=== PATIENT | female | born 1990 | race Two or more races ===

== ENCOUNTER → 2021-06-01 | Outpatient (CLI) | payer BC ==
[2021-06-01 13:59] LABS: Basophils # (auto) 0 10 ^3/uL (0-0.2); Basophils % (auto) 0.5 % (0.0-2.0); Eosinophils # (auto) 0.1 10 ^3/uL (0-0.8); Hematocrit 39.2 % (36.0-46.0); Hemoglobin 13.2 g/dL (12.2-16.2); Lymphocytes # (auto) 2.7 10 ^3/uL (0.4-5.4); Lymphocytes % (auto) 32.1 % (10.0-50.0); Mean Corpuscular Hemoglobin 30.2 pg (28.0-32.0); Mean Corpuscular Hgb Conc. 33.7 g/dL (32.0-36.0); Mean Corpuscular Volume 89.7 fL (80.0-100.0); Monocytes # (auto) 0.6 10 ^3/uL (0-1.3); Monocytes % (auto) 7.2 % (0.0-12.0); Neutrophils # (auto) 4.9 10 ^3/uL (1.6-8.6); Neutrophils % (auto) 59.2 % (37.0-80.0); Nucleated Red Blood Cells % 0.1 %; Red Blood Cells 4.37 10^6/uL (4.0-5.20); Red Cell Distribution Width 13.7 % (11.8-14.3); White Blood Cell 8.3 10^3/uL (4.4-10.8)
[2021-06-01 14:12] LABS: Urine Bacteria NONE SEEN /hpf (None Seen); Urine Blood Negative /uL (Negative); Urine Specific Gravity 1.021 (1.001-1.035); Urine WBC 1 /hpf (0 - 5)
[2021-06-01 14:34] LABS: Albumin 3.6 g/dL (3.4-5.0); Calcium 8.8 mg/dL (8.5-10.1)
[2021-06-01 14:39] LABS: Bilirubin, Total 0.7 mg/dL (0.2-1.0); Total Protein 6.8 g/dL (6.4-8.2)
== END | disposition home or self-care (01) ==
LOC: LAB 13:36
PROVIDERS: ATTEND Nurse Practitioner Family
DX: Z32.01 Encounter for pregnancy test, result positive (principal); Z87.59 Personal history of other complications of pregnancy, childbirth and the puerperium; Z83.3 Family history of diabetes mellitus; Z00.00 Encounter for general adult medical examination without abnormal findings
CPT/HCPCS: 36415; 80053; 81001; 84702; 85025

== ENCOUNTER → 2021-06-22 | Outpatient (CLI) | payer BC ==
[2021-06-22 09:34] LABS: Basophils # (auto) 0 10 ^3/uL (0-0.2); Basophils % (auto) 0.5 % (0.0-2.0); Eosinophils # (auto) 0 10 ^3/uL (0-0.8); Eosinophils % (auto) 0.6 % (0.0-7.0); Hematocrit 39.3 % (36.0-46.0); Hemoglobin 13.4 g/dL (12.2-16.2); Lymphocytes # (auto) 2.7 10 ^3/uL (0.4-5.4); Lymphocytes % (auto) 32.3 % (10.0-50.0); Mean Corpuscular Hemoglobin 30.9 pg (28.0-32.0); Mean Corpuscular Volume 90.8 fL (80.0-100.0); Monocytes # (auto) 0.5 10 ^3/uL (0-1.3); Monocytes % (auto) 6.2 % (0.0-12.0); Neutrophils % (auto) 60.4 % (37.0-80.0); Nucleated Red Blood Cells % 0.1 %; Red Blood Cells 4.33 10^6/uL (4.0-5.20); Red Cell Distribution Width 13.5 % (11.8-14.3); White Blood Cell 8.3 10^3/uL (4.4-10.8)
[2021-06-22 10:02] LABS: Amphetamine Screen, Urine NEGATIVE (NEGATIVE); Barbiturate Scree,Urine NEGATIVE (NEGATIVE); Benzodiazephine Screen, Urine NEGATIVE (NEGATIVE); Cannabinoid Screen, Urine NEGATIVE (NEGATIVE); Cocaine Screen, Urine NEGATIVE (NEGATIVE); Opiate Scree,Urine NEGATIVE (NEGATIVE); Phencyclidine Screen, Urine NEGATIVE (NEGATIVE)
[2021-06-23 07:06] LABS: RPR Non Reactive (Non Reactive)
== END | disposition home or self-care (01) ==
LOC: LAB 08:52
PROVIDERS: ATTEND Obstetrics & Gynecology Obstetrics
DX: Z34.00 Encounter for supervision of normal first pregnancy, unspecified trimester (principal); Z31.430 Encounter of female for testing for genetic disease carrier status for procreative management; Z36.0 Encounter for antenatal screening for chromosomal anomalies; N39.0 Urinary tract infection, site not specified
CPT/HCPCS: 36415; 80307; 83036; 84112; 84702; 85025; 86592; 86703; 86762; 86850; 86900; 86901; 87086; 87340

== ENCOUNTER → 2021-08-02 | Outpatient (CLI) | payer BC | END | disposition home or self-care (01) | LOC: LAB 09:10 | PROVIDERS: ATTEND Obstetrics & Gynecology | DX: Z34.80 Encounter for supervision of other normal pregnancy, unspecified trimester (principal); Z3A.00 Weeks of gestation of pregnancy not specified ==

== ENCOUNTER → 2021-11-09 | Outpatient (CLI) | payer BC ==
[2021-11-09 10:56] LABS: Basophils # (auto) 0 10 ^3/uL (0-0.2); Basophils % (auto) 0.2 % (0.0-2.0); Eosinophils # (auto) 0.1 10 ^3/uL (0-0.8); Eosinophils % (auto) 0.7 % (0.0-7.0); Hemoglobin 12.7 g/dL (12.2-16.2); Lymphocytes # (auto) 1.9 10 ^3/uL (0.4-5.4); Lymphocytes % (auto) 19.7 % (10.0-50.0); Mean Corpuscular Hemoglobin 31.2 pg (28.0-32.0); Mean Corpuscular Hgb Conc. 34.2 g/dL (32.0-36.0); Mean Corpuscular Volume 91.4 fL (80.0-100.0); Monocytes # (auto) 0.5 10 ^3/uL (0-1.3); Monocytes % (auto) 5.6 % (0.0-12.0); Neutrophils # (auto) 7.2 10 ^3/uL (1.6-8.6); Neutrophils % (auto) 73.8 % (37.0-80.0); Red Blood Cells 4.05 10^6/uL (4.0-5.20); Red Cell Distribution Width 13.5 % (11.8-14.3); White Blood Cell 9.8 10^3/uL (4.4-10.8)
[2021-11-10 07:06] LABS: RPR Non Reactive (Non Reactive)
== END | disposition home or self-care (01) ==
LOC: LAB 08:47
PROVIDERS: ATTEND Obstetrics & Gynecology
DX: Z34.00 Encounter for supervision of normal first pregnancy, unspecified trimester (principal); O99.810 Abnormal glucose complicating pregnancy
CPT/HCPCS: 36415; 82951; 85025; 86592

== ENCOUNTER → 2022-01-10 | Outpatient (CLI) | payer BC ==
[2022-01-10 08:49] LABS: Basophils # (auto) 0.1 10 ^3/uL (0-0.2); Basophils % (auto) 0.9 % (0.0-2.0); Eosinophils # (auto) 0 10 ^3/uL (0-0.8); Eosinophils % (auto) 0.4 % (0.0-7.0); Hematocrit 39.8 % (36.0-46.0); Hemoglobin 13.4 g/dL (12.2-16.2); Lymphocytes # (auto) 2.3 10 ^3/uL (0.4-5.4); Lymphocytes % (auto) 22.2 % (10.0-50.0); Mean Corpuscular Hgb Conc. 33.6 g/dL (32.0-36.0); Mean Corpuscular Volume 89.4 fL (80.0-100.0); Monocytes # (auto) 0.6 10 ^3/uL (0-1.3); Neutrophils # (auto) 7.4 10 ^3/uL (1.6-8.6); Neutrophils % (auto) 70.5 % (37.0-80.0); Nucleated Red Blood Cells % 0.1 %; Red Blood Cells 4.45 10^6/uL (4.0-5.20); Red Cell Distribution Width 14.6 % (11.8-14.3); White Blood Cell 10.5 10^3/uL (4.4-10.8)
[2022-01-11 06:07] LABS: RPR Non Reactive (Non Reactive)
== END | disposition home or self-care (01) ==
LOC: LAB 08:31
PROVIDERS: ATTEND Obstetrics & Gynecology
DX: Z34.80 Encounter for supervision of other normal pregnancy, unspecified trimester (principal)
CPT/HCPCS: 36415; 84112; 85025; 86592

== ENCOUNTER 2022-02-04 06:23 | Observation (INO) | payer BC ==
[~2022-02-04] VITALS: Ht 162.6 cm; Wt 97.5 kg
== END 2022-02-04 07:51 | disposition home or self-care (01) ==
LOC: LDRP 06:23
PROVIDERS: ADMIT Obstetrics & Gynecology; ATTEND Obstetrics & Gynecology
DX: O62.9 Abnormality of forces of labor, unspecified (principal); O46.93 Antepartum hemorrhage, unspecified, third trimester; Z3A.39 39 weeks gestation of pregnancy
CPT/HCPCS: 59025; 81002; G0378

== ENCOUNTER 2022-02-05 17:01 | Inpatient (IN) | payer BC ==
[~2022-02-05] VITALS: Ht 162.6 cm; Wt 108.9 kg
[2022-02-05] MEDS ORDERED: LIDOCAINE 2%HCL (LOCAL ANESTH.) INJ 10ml MDV IJ PRN (21:15)
[2022-02-05] MEDS ORDERED: PHISODERM TOP SOLN 240ML BTL TOP PRN (21:15)
[2022-02-05] MEDS ORDERED: BUTORPHANOL TARTRATE 2 MG/1 ML VIAL IV PRN (21:15)
[2022-02-05] MEDS ORDERED: WITCH HAZEL-GLYCERIN PAD TOP PRN (21:15)
[2022-02-05] MEDS ORDERED: LACT. RINGERS/OXYTOCIN 20UNITS 1,000 ML IV SCH (21:15)
[2022-02-05] MEDS ORDERED: TERBUTALINE SULFATE 1 MG/ML 1ML VIAL SC PRN (21:15)
[2022-02-05] MEDS ORDERED: DERMOPLAST 60ML BOTTLE TOP PRN (21:15)
[2022-02-05] MEDS: LACTATED RINGER'S 1,000 ML IV SCH (21:45)
[2022-02-05] MEDS: PROMETHAZINE HCL 25 MG/ML 1ML IM PRN (21:53)
[2022-02-05] MEDS: BUTORPHANOL TARTRATE 2 MG/1 ML VIAL IV PRN (21:56)
[2022-02-05 22:18] LABS: Basophils # (auto) 0 10 ^3/uL (0-0.2); Basophils % (auto) 0.3 % (0.0-2.0); Eosinophils # (auto) 0 10 ^3/uL (0-0.8); Hematocrit 42.3 % (36.0-46.0); Lymphocytes # (auto) 2.2 10 ^3/uL (0.4-5.4); Lymphocytes % (auto) 17.9 % (10.0-50.0); Mean Corpuscular Hemoglobin 29.8 pg (28.0-32.0); Mean Corpuscular Volume 90.3 fL (80.0-100.0); Monocytes # (auto) 0.5 10 ^3/uL (0-1.3); Monocytes % (auto) 3.9 % (0.0-12.0); Neutrophils # (auto) 9.5 10 ^3/uL (1.6-8.6); Neutrophils % (auto) 77.9 % (37.0-80.0); Red Blood Cells 4.68 10^6/uL (4.0-5.20); Red Cell Distribution Width 15.7 % (11.8-14.3); White Blood Cell 12.2 10^3/uL (4.4-10.8)
[2022-02-05 22:20] LABS: Urine Bacteria NONE SEEN /hpf (None Seen); Urine Blood 2+ /uL (Negative); Urine Specific Gravity 1.008 (1.001-1.035); Urine WBC 2 /hpf (0 - 5)
[2022-02-05 22:34] LABS: Albumin 2.7 g/dL (3.4-5.0); Calcium 8.8 mg/dL (8.5-10.1); Potassium 3.6 mmol/L (3.5-5.1)
[2022-02-05 22:41] LABS: INR 0.92 (0.9-1.15); Partial Thromboplastin Time 27.4 sec (24.6-33.4)
[2022-02-05 22:45] LABS: BUN/Creatinine Ratio 14.5; Bilirubin, Total 0.7 mg/dL (0.2-1.0); Total Protein 6.7 g/dL (6.4-8.2)
[2022-02-05 23:04] LABS: Alcohol, Urine < 3.0 mg/dL (0-10); Amphetamine Screen, Urine NEGATIVE (NEGATIVE); Barbiturate Scree,Urine NEGATIVE (NEGATIVE); Benzodiazephine Screen, Urine NEGATIVE (NEGATIVE); Cannabinoid Screen, Urine NEGATIVE (NEGATIVE); Cocaine Screen, Urine NEGATIVE (NEGATIVE); Opiate Scree,Urine NEGATIVE (NEGATIVE); Phencyclidine Screen, Urine NEGATIVE (NEGATIVE)
[2022-02-06] VITALS (8 sets, daily range): BP systolic 100–128; BP diastolic 45–103
[2022-02-06] MEDS: PROMETHAZINE HCL 25 MG/ML 1ML IM PRN (01:26)
[2022-02-06] MEDS: BUTORPHANOL TARTRATE 2 MG/1 ML VIAL IV PRN (01:27)
[2022-02-06] MEDS ORDERED: LACTATED RINGER'S 1,000 ML IV ONE (02:45)
[2022-02-06] MEDS ORDERED: ePHEDrine SULFATE 50 MG/ML AMP IV ONE (02:45)
[2022-02-06] MEDS ORDERED: NALOXONE HCL 0.4 MG/ML VIAL IV ONE (02:45)
[2022-02-06] MEDS ORDERED: fentaNYL CITRATE 100 MCG/2 ML VL IV ONE (02:45)
[2022-02-06] MEDS ORDERED: ROPIVACAINE HCL 200 ML EPI SCH (02:45)
[2022-02-06] MEDS ORDERED: LIDOCAINE HCL 2 %PF INJ 10ML AMP IJ ONE ×2 (02:45→18:16)
[2022-02-06] MEDS: LACTATED RINGER'S 1,000 ML IV SCH (13:11)
[2022-02-06] MEDS ORDERED: ACETAMINOPHEN 325 MG TAB PO PRN (13:15)
[2022-02-06] MEDS ORDERED: ceFAZolin 2 GM in D5W 5% 100 ML IV ONE (13:15)
[2022-02-06] MEDS ORDERED: IBUP800T27 PO (18:03)
[2022-02-06] MEDS ORDERED: HYDR-4902 PO (18:03)
[2022-02-06] MEDS ORDERED: DOCU-94 PO (18:03)
[2022-02-06] MEDS ORDERED: LIDOCAINE 2% (LOCAL ANESTH.) PF 5ml SDV ONE ×2 (18:14→18:15)
[2022-02-06] MEDS ORDERED: fentaNYL CITRATE 100 MCG/2 ML VL ONE (18:15)
[2022-02-06] MEDS ORDERED: ONDANSETRON HCL 4 MG/2 ML VIAL ONE (18:15)
[2022-02-06] MEDS ORDERED: MORPHINE SULF PF 5 MG/10 ML VIAL ONE (18:15)
[2022-02-06] MEDS ORDERED: GLYCOPYRROLATE 0.2 MG/ML 1ML VIAL ONE (18:15)
[2022-02-06] MEDS ORDERED: LACT. RINGERS/OXYTOCIN 20UNITS 1,000 ML IV ONE (18:30)
[2022-02-06] MEDS ORDERED: ONDANSETRON HCL 4 MG/2 ML VIAL IV PRN ×3 (18:30→19:30)
[2022-02-06] MEDS ORDERED: CARBOPROST TROMETHAMINE 250 MCG/1ML VIAL IM ONE (18:46)
[2022-02-06] MEDS ORDERED: METHYLERGONOVINE MALEATE 0.2 MG/ML AMP IM ONE (18:50)
[2022-02-06] MEDS ORDERED: NEOMYCIN-BACITRACIN-POLYM 15GM TOP OINT TOP ONE (19:09)
[2022-02-06] MEDS ORDERED: KETOROLAC TROMETH 30 MG/ML 1ML VIAL IV PRN (19:30)
[2022-02-06] MEDS ORDERED: FAMOTIDINE (10MG/ML) 2ML VL IV PRN (19:30)
[2022-02-06] MEDS ORDERED: DexAMETHasone SOD PHOS 10MG/1ML VIAL INJ IV PRN (19:30)
[2022-02-06] MEDS ORDERED: NALOXONE HCL 0.4 MG/ML VIAL IV PRN (19:30)
[2022-02-06] MEDS ORDERED: PHYTONADIONE 1MG/0.5ML SYRINGE NEONATAL IM ONE (20:15)
[2022-02-06] MEDS ORDERED: HEPATITIS B VACCINE PED (PF) 10 MCG/0.5 ML IM ONE (20:15)
[2022-02-06] MEDS ORDERED: ERYTHROMY OPTH OINT 5mg/gm 1gm or 3.5gm tube OP ONE (20:15)
[2022-02-06] MEDS: DIPHENOXYLATE W/ATROPINE 2.5 MG TAB PO SCH (21:09)
[2022-02-06] MEDS: diphenhdrAMINE HCL 50 MG/1 ML VL IV PRN (21:16)
[2022-02-07] VITALS (24 sets, daily range): BP systolic 88–122; BP diastolic 45–80
[2022-02-07 00:53] LABS: Basophils # (auto) 0 10 ^3/uL (0-0.2); Basophils % (auto) 0.2 % (0.0-2.0); Eosinophils # (auto) 0 10 ^3/uL (0-0.8); Hematocrit 34.5 % (36.0-46.0); Hemoglobin 11.4 g/dL (12.2-16.2); Lymphocytes # (auto) 1.6 10 ^3/uL (0.4-5.4); Lymphocytes % (auto) 9.1 % (10.0-50.0); Mean Corpuscular Hemoglobin 30.1 pg (28.0-32.0); Mean Corpuscular Hgb Conc. 33.2 g/dL (32.0-36.0); Mean Corpuscular Volume 90.9 fL (80.0-100.0); Monocytes # (auto) 1.1 10 ^3/uL (0-1.3); Neutrophils % (auto) 84.7 % (37.0-80.0); Red Blood Cells 3.79 10^6/uL (4.0-5.20); Red Cell Distribution Width 16.1 % (11.8-14.3); White Blood Cell 17.7 10^3/uL (4.4-10.8)
[2022-02-07] MEDS: diphenhdrAMINE HCL 50 MG/1 ML VL IV PRN ×2 (02:41→08:57)
[2022-02-07] MEDS: ACETAMINOPHEN IV 1000 MG/100ML (10MG/ML) IV PRN ×2 (03:09→08:46)
[2022-02-07] MEDS: ceFAZolin 1GM/50ML 50 ML IV SCH ×5 (03:33→22:19)
[2022-02-07 05:06] LABS: RPR Non Reactive (Non Reactive)
[2022-02-07 07:46] LABS: Basophils # (auto) 0.1 10 ^3/uL (0-0.2); Basophils % (auto) 0.5 % (0.0-2.0); Eosinophils # (auto) 0 10 ^3/uL (0-0.8); Eosinophils % (auto) 0.1 % (0.0-7.0); Hematocrit 33.3 % (36.0-46.0); Hemoglobin 11.2 g/dL (12.2-16.2); Lymphocytes # (auto) 2.6 10 ^3/uL (0.4-5.4); Lymphocytes % (auto) 15.6 % (10.0-50.0); Mean Corpuscular Hemoglobin 30.8 pg (28.0-32.0); Mean Corpuscular Hgb Conc. 33.7 g/dL (32.0-36.0); Mean Corpuscular Volume 91.5 fL (80.0-100.0); Monocytes % (auto) 6.3 % (0.0-12.0); Neutrophils # (auto) 12.9 10 ^3/uL (1.6-8.6); Neutrophils % (auto) 77.5 % (37.0-80.0); Red Blood Cells 3.64 10^6/uL (4.0-5.20); White Blood Cell 16.6 10^3/uL (4.4-10.8)
[2022-02-07] MEDS: DIPHENOXYLATE W/ATROPINE 2.5 MG TAB PO SCH (10:00)
[2022-02-07] MEDS ORDERED: HYDROcodone-ACET 5/325MG TAB PO PRN (10:15)
[2022-02-07] MEDS: HYDROcodone-ACET 5/325MG TAB PO PRN ×2 (13:13→17:27)
[2022-02-07] MEDS: SIMETHICONE 80 MG CHEWABLE TABLET PO SCH ×3 (13:14→22:00)
[2022-02-07] MEDS: IBUPROFEN 800 MG TAB PO PRN (22:19)
[2022-02-07] MEDS: DOCUSATE SOD 100 MG CAP PO SCH (22:19)
[2022-02-08 03:00] VITALS: BP 97/68
[2022-02-08] MEDS: HYDROcodone-ACET 5/325MG TAB PO PRN ×4 (03:05→21:28)
[2022-02-08] MEDS: IBUPROFEN 800 MG TAB PO PRN ×2 (05:53→17:09)
[2022-02-08] MEDS: SIMETHICONE 80 MG CHEWABLE TABLET PO SCH ×4 (06:00→21:30)
[2022-02-08 07:00] VITALS: BP 104/60
[2022-02-08] MEDS ORDERED: DOCUSATE CALCIUM 240 MG CAP PO SCH (10:00)
[2022-02-08] MEDS: DOCUSATE SOD 100 MG CAP PO SCH ×2 (10:07→21:30)
[2022-02-08 11:00] VITALS: BP 107/58
[2022-02-08] MEDS ORDERED: TETANUS-DIPTH-ACEL PERTUSSIS 0.5ML SYR Tdap IM ONE (13:15)
[2022-02-08 15:00] VITALS: BP 124/77
[2022-02-08 19:15] VITALS: BP 114/57
[2022-02-08 23:00] VITALS: BP 114/57
[2022-02-09] MEDS: IBUPROFEN 800 MG TAB PO PRN ×2 (01:31→07:19)
[2022-02-09 03:00] VITALS: BP 111/59
[2022-02-09] MEDS: HYDROcodone-ACET 5/325MG TAB PO PRN (05:31)
[2022-02-09] MEDS: SIMETHICONE 80 MG CHEWABLE TABLET PO SCH (05:32)
[2022-02-09 07:00] VITALS: BP 100/58
[2022-02-09 08:57] VITALS: BP 100/55
== END 2022-02-09 08:57 | disposition home or self-care (01) | DRG 788 ==
LOC: LDRP 17:01 → UNDOADMOB 17:01 → LDRP 21:05 → OBSVTOIN 21:05 → NUR 02-06 18:23 → LDRP 02-06 20:24
PROVIDERS: ADMIT Obstetrics & Gynecology; ATTEND Obstetrics & Gynecology
PROC: 10D00Z1 Extraction of Products of Conception, Low, Open Approach (ICD-10-PCS; principal; 2022-02-06 18:18)
DX: O63.9 Long labor, unspecified (principal); Z20.822 Contact with and (suspected) exposure to COVID-19; O62.0 Primary inadequate contractions; O77.9 Labor and delivery complicated by fetal stress, unspecified; Z3A.39 39 weeks gestation of pregnancy; Z37.0 Single live birth
CPT/HCPCS: 36415; 59025; 62282; 80053; 80307; 81001; 81002; 85025; 85610; 85730; 86592; 86850; 86900; 86901; 90715; 94760; 94762; 96360; 96361; 96365; 96366; 96372; 96374; 96375; G0378; J0131; J0690; J1885; J2001; J2405; J2590; J7060

== ENCOUNTER → 2022-07-25 | Outpatient (CLI) | payer BC ==
[~2022-07-25] MED LIST: DOCU-94 PO; HYDR-4902 PO; IBUP800T27 PO
[2022-07-25 10:43] LABS: Basophils # (auto) 0 10 ^3/uL (0-0.2); Basophils % (auto) 0.4 % (0.0-2.0); Eosinophils # (auto) 0.1 10 ^3/uL (0-0.8); Eosinophils % (auto) 0.9 % (0.0-7.0); Hematocrit 44.2 % (36.0-46.0); Hemoglobin 14.6 g/dL (12.2-16.2); Lymphocytes # (auto) 2.9 10 ^3/uL (0.4-5.4); Mean Corpuscular Hemoglobin 29.6 pg (28.0-32.0); Mean Corpuscular Volume 89.5 fL (80.0-100.0); Monocytes # (auto) 0.4 10 ^3/uL (0-1.3); Monocytes % (auto) 4.8 % (0.0-12.0); Neutrophils # (auto) 4.6 10 ^3/uL (1.6-8.6); Neutrophils % (auto) 57.9 % (37.0-80.0); Nucleated Red Blood Cells % 0.1 %; Red Blood Cells 4.93 10^6/uL (4.0-5.20); Red Cell Distribution Width 15.2 % (11.8-14.3)
[2022-07-25 19:58] LABS: Albumin 4.3 g/dL (3.4-5.0); Potassium 4.4 mmol/L (3.5-5.1)
[2022-07-25 20:04] LABS: BUN/Creatinine Ratio 22.7; Total Protein 7.6 g/dL (6.4-8.2)
[2022-07-27 13:54] LABS: Hepatitis A Ab IgM Negative
[2022-07-27 14:03] LABS: Hepatitis B Core IgM Negative
== END | disposition home or self-care (01) ==
LOC: LAB 09:54
PROVIDERS: ATTEND Nurse Practitioner Family
DX: Z20.2 Contact with and (suspected) exposure to infections with a predominantly sexual mode of transmission (principal); L65.9 Nonscarring hair loss, unspecified; F53.0 Postpartum depression; E66.01 Morbid (severe) obesity due to excess calories
CPT/HCPCS: 36415; 80053; 80061; 82306; 84439; 84443; 85025; 86592; 86695; 86696; 86703; 86705; 86709; 86803; 87340

== ENCOUNTER → 2023-08-07 | Outpatient (CLI) | payer BC ==
[~2023-08-07] MED LIST changes: +IBUP-1456 PO; -IBUP800T27 PO
[2023-08-07 11:31] LABS: Basophils # (auto) 0 10 ^3/uL (0-0.2); Basophils % (auto) 0.3 % (0.0-2.0); Eosinophils # (auto) 0.1 10 ^3/uL (0-0.8); Eosinophils % (auto) 1.6 % (0.0-7.0); Hemoglobin 13.4 g/dL (12.2-16.2); Lymphocytes # (auto) 2.3 10 ^3/uL (0.4-5.4); Lymphocytes % (auto) 27.7 % (10.0-50.0); Mean Corpuscular Hgb Conc. 33.4 g/dL (32.0-36.0); Mean Corpuscular Volume 92.8 fL (80.0-100.0); Monocytes # (auto) 0.5 10 ^3/uL (0-1.3); Monocytes % (auto) 5.5 % (0.0-12.0); Neutrophils # (auto) 5.4 10 ^3/uL (1.6-8.6); Neutrophils % (auto) 64.9 % (37.0-80.0); Red Blood Cells 4.31 10^6/uL (4.0-5.20); Red Cell Distribution Width 13.3 % (11.8-14.3); White Blood Cell 8.4 10^3/uL (4.4-10.8)
[2023-08-07 11:51] LABS: Alkaline Phosphatase 82 U/L (46-116); Anion Gap 7 (5-15); Calcium 9.2 mg/dL (8.5-10.1); Carbon Dioxide 27 mmol/L (20-30); Chloride 106 mmol/L (98-107); Potassium 3.9 mmol/L (3.5-5.1); Sodium 140 mmol/L (136-145)
[2023-08-07 11:52] LABS: Aspartate Aminotransferase 11 U/L (13-40); Blood Urea Nitrogen 6 mg/dL (9-23); Glucose 88 mg/dL (74-106); Triglycerides 63 mg/dL (< 150)
[2023-08-07 11:53] LABS: LDL Cholesterol 72 mg/dL (< 100)
[2023-08-07 11:54] LABS: Albumin 4.5 g/dL (3.2-4.8); Bilirubin, Total 1.1 mg/dL (0.2-1.0); Cholesterol 131 mg/dL (< 200); HDL Cholesterol 53 mg/dL (40-59); Total Protein 6.9 g/dL (5.7-8.2)
[2023-08-07 12:09] LABS: Alanine Aminotransferase < 9 U/L (7-40)
[2023-08-07 12:15] LABS: Thyroid Stimulating Hormone 1.04 uIU/mL (0.55-4.78)
[2023-08-07 12:23] LABS: Beta HCG, Quantitative 4607.6 mIU/mL (1.5-4.2)
== END | disposition home or self-care (01) ==
LOC: LAB 10:58
DX: I10 Essential (primary) hypertension (principal); E55.9 Vitamin D deficiency, unspecified; E66.9 Obesity, unspecified; N92.6 Irregular menstruation, unspecified
CPT/HCPCS: 36415; 80053; 80061; 82306; 84439; 84443; 84702; 85025

== ENCOUNTER → 2023-10-19 | Outpatient (CLI) | payer BC | END | disposition home or self-care (01) | LOC: LAB 11:09 | PROVIDERS: ATTEND Obstetrics & Gynecology | DX: Z34.80 Encounter for supervision of other normal pregnancy, unspecified trimester (principal); Z3A.00 Weeks of gestation of pregnancy not specified | CPT/HCPCS: 87086 ==

== ENCOUNTER → 2024-02-05 | Outpatient (CLI) | payer BC | END | disposition home or self-care (01) | LOC: LAB 15:05 | PROVIDERS: ATTEND Nurse Practitioner Family | DX: R07.9 Chest pain, unspecified (principal) | CPT/HCPCS: 36415; 85379 ==

== ENCOUNTER → 2024-03-05 | Outpatient (CLI) | payer BC ==
[2024-03-05 10:15] LABS: Basophils # (auto) 0 10 ^3/uL (0-0.2); Basophils % (auto) 0.4 % (0.0-2.0); Eosinophils # (auto) 0.1 10 ^3/uL (0-0.8); Eosinophils % (auto) 0.9 % (0.0-7.0); Hematocrit 37.2 % (36.0-46.0); Hemoglobin 12.6 g/dL (12.2-16.2); Lymphocytes # (auto) 2.5 10 ^3/uL (0.4-5.4); Lymphocytes % (auto) 23.4 % (10.0-50.0); Mean Corpuscular Hemoglobin 30.6 pg (28.0-32.0); Mean Corpuscular Hgb Conc. 33.8 g/dL (32.0-36.0); Mean Corpuscular Volume 90.6 fL (80.0-100.0); Monocytes # (auto) 0.7 10 ^3/uL (0-1.3); Monocytes % (auto) 6.5 % (0.0-12.0); Neutrophils # (auto) 7.4 10 ^3/uL (1.6-8.6); Neutrophils % (auto) 68.8 % (37.0-80.0); Platelet Count (auto) 353 10^3/uL (140-450); Red Blood Cells 4.11 10^6/uL (4.0-5.20); Red Cell Distribution Width 13.9 % (11.8-14.3); White Blood Cell 10.7 10^3/uL (4.4-10.8)
[2024-03-06 07:06] LABS: RPR Non Reactive (Non Reactive)
[2024-03-06 12:06] LABS: Chlamydia Trachomatis, NAA Negative (Negative); Neisseria gonorrhoeae, NAA Negative (Negative)
== END | disposition home or self-care (01) ==
LOC: LAB 09:39
PROVIDERS: ATTEND Obstetrics & Gynecology
DX: Z11.3 Encounter for screening for infections with a predominantly sexual mode of transmission (principal); Z72.51 High risk heterosexual behavior
CPT/HCPCS: 36415; 85025; 86592

== ENCOUNTER 2024-03-26 09:20 | Observation (INO) | payer BC ==
[2024-03-26] MEDS ORDERED: PREN-96 PO (10:22)
== END 2024-03-26 11:22 | disposition home or self-care (01) ==
LOC: LDRP 09:20 → UNDOADMOB 09:20 → LDRP 09:51 → UNDODISOB 11:22
PROVIDERS: ADMIT Obstetrics & Gynecology; ATTEND Obstetrics & Gynecology
DX: O62.9 Abnormality of forces of labor, unspecified (principal); Z3A.38 38 weeks gestation of pregnancy; Z79.899 Other long term (current) drug therapy; Z98.890 Other specified postprocedural states
CPT/HCPCS: 59025; 76818; 81002; 94760; G0378

== ENCOUNTER 2024-04-02 04:00 | Inpatient (IN) | payer BC ==
[2024-03-31 11:51] LABS: Basophils # (auto) 0 10 ^3/uL (0-0.2); Basophils % (auto) 0.3 % (0.0-2.0); Eosinophils # (auto) 0 10 ^3/uL (0-0.8); Eosinophils % (auto) 0.3 % (0.0-7.0); Hematocrit 39.3 % (36.0-46.0); Hemoglobin 13.1 g/dL (12.2-16.2); Lymphocytes # (auto) 2.4 10 ^3/uL (0.4-5.4); Lymphocytes % (auto) 24.8 % (10.0-50.0); Mean Corpuscular Hgb Conc. 33.4 g/dL (32.0-36.0); Mean Corpuscular Volume 90.1 fL (80.0-100.0); Monocytes # (auto) 0.7 10 ^3/uL (0-1.3); Monocytes % (auto) 7.5 % (0.0-12.0); Neutrophils # (auto) 6.4 10 ^3/uL (1.6-8.6); Neutrophils % (auto) 67.1 % (37.0-80.0); Nucleated Red Blood Cells % 0.2 %; Platelet Count (auto) 332 10^3/uL (140-450); Red Blood Cells 4.36 10^6/uL (4.0-5.20); Red Cell Distribution Width 15.2 % (11.8-14.3); White Blood Cell 9.5 10^3/uL (4.4-10.8)
[2024-03-31 12:08] LABS: INR 0.96 (0.9-1.15); Partial Thromboplastin Time 26.6 SEC (24.5-34.5); Prothrombin Time 10.2 sec (9.3-11.8)
[2024-03-31 12:14] LABS: Alanine Aminotransferase 11 U/L (7-40); Alkaline Phosphatase 183 U/L (46-116); Anion Gap 8 (5-15); Aspartate Aminotransferase 16 U/L (13-40); Blood Urea Nitrogen 5 mg/dL (9-23); Calcium 9.4 mg/dL (8.7-10.4); Carbon Dioxide 24 mmol/L (20-31); Chloride 106 mmol/L (98-107); Glucose 75 mg/dL (74-106); Potassium 4.1 mmol/L (3.5-5.1); Sodium 138 mmol/L (136-145)
[2024-03-31 12:15] LABS: Bilirubin, Total 0.8 mg/dL (0.2-1.0); Total Protein 6.9 g/dL (5.7-8.2)
[2024-03-31 12:46] LABS: Urine Bacteria FEW /hpf (None Seen); Urine Blood TRACE /uL (Negative); Urine Clarity Clear (Clear); Urine Color Colorless (Yellow); Urine Protein, UAD Negative (Negative); Urine Specific Gravity 1.003 (1.001-1.035); Urine Urobilinogen Normal (Negative); Urine WBC <1 /hpf (0 - 5)
[2024-03-31 12:58] LABS: Amphetamine Screen, Urine Neg (NEGATIVE)
[2024-03-31 12:59] LABS: Barbiturate Scree,Urine Neg (NEGATIVE); Benzodiazephine Screen, Urine Neg (NEGATIVE); Cannabinoid Screen, Urine Neg (NEGATIVE); Cocaine Screen, Urine Neg (NEGATIVE); Opiate Scree,Urine Neg (NEGATIVE); Phencyclidine Screen, Urine Neg (NEGATIVE)
[2024-04-01 07:06] LABS: RPR Non Reactive (Non Reactive)
[~2024-04-02] VITALS: Ht 162.6 cm; Wt 98.0 kg
[2024-04-02] VITALS (15 sets, daily range): BP systolic 94–110; BP diastolic 51–72; PULSE 73–94; RESP 14–18; TEMP 97.6–98.1; O2SAT 95–99
[~2024-04-02 04:00] MED LIST changes: +PREN-96 PO
[2024-04-02] MEDS ORDERED: ceFAZolin 1GM/50ML 50 ML IV ONE (04:45)
[2024-04-02] MEDS: LACTATED RINGER'S 1,000 ML IV ONE (06:00)
[2024-04-02] MEDS ORDERED: fentaNYL CITRATE 100 MCG/2 ML VL ONE (06:49)
[2024-04-02] MEDS ORDERED: MORPHINE SULF PF 5 MG/10 ML VIAL ONE (06:49)
[2024-04-02] MEDS ORDERED: ONDANSETRON HCL 4 MG/2 ML VIAL ONE (06:50)
[2024-04-02] MEDS ORDERED: DexAMETHasone SOD PHOS 10MG/1ML VIAL INJ ONE (06:50)
[2024-04-02] MEDS ORDERED: oxyTOCIN 10 UNIT/ML 10ML VIAL ONE (06:52)
[2024-04-02] MEDS: ceFAZolin 2 GM/D5W50ml 50 ML IV ONE (06:57)
[2024-04-02] MEDS ORDERED: ceFAZolin 1GM/50ML 50 ML IV SCH (07:15)
[2024-04-02] MEDS ORDERED: GUM (CHEWING) 1 GUM CHEW CHEW ONE (07:15)
[2024-04-02] MEDS ORDERED: ONDANSETRON HCL 4 MG/2 ML VIAL IV PRN ×2 (07:15→08:30)
[2024-04-02] MEDS: LACT. RINGERS/OXYTOCIN 20UNITS 1,000 ML IV ONE (07:15)
[2024-04-02] MEDS ORDERED: ePHEDrine SULFATE 50 MG/ML AMP ONE (07:32)
[2024-04-02] MEDS ORDERED: NALOXONE HCL 0.4 MG/ML VIAL IV PRN (08:30)
[2024-04-02] MEDS ORDERED: NALBUPHINE HCL 10 MG/1ml INJECTION IV ONE (08:30)
[2024-04-02] MEDS ORDERED: HYDROmorphone HCL 2 MG/ML VL/or syr IV PRN (08:30)
[2024-04-02] MEDS: ACETAMINOPHEN IV 1000 MG/100ML (10MG/ML) IV PRN (10:45)
[2024-04-02] MEDS: LACTATED RINGER'S 1,000 ML IV SCH (10:45)
[2024-04-02 11:07] LABS: Treponema Pallidum Ab LC Non Reactive (Non Reactive)
[2024-04-02] MEDS ORDERED: DOCU-94 PO (12:21)
[2024-04-02] MEDS ORDERED: HYDR-4072 PO (12:21)
[2024-04-02] MEDS ORDERED: IBUP-1456 PO ×2 (12:21→23:42)
[2024-04-02] MEDS: diphenhdrAMINE HCL 50 MG/1 ML VL IV PRN (14:17)
[2024-04-02] MEDS: ceFAZolin 1GM/50ML 50 ML IV SCH (14:53)
[2024-04-02] MEDS: KETOROLAC TROMETH 30 MG/ML 1ML VIAL IV PRN (15:26)
[2024-04-02 21:06] LABS: Basophils # (auto) 0.1 10 ^3/uL (0-0.2); Basophils % (auto) 0.4 % (0.0-2.0); Eosinophils # (auto) 0 10 ^3/uL (0-0.8); Eosinophils % (auto) 0.1 % (0.0-7.0); Hematocrit 36.3 % (36.0-46.0); Hemoglobin 12.1 g/dL (12.2-16.2); Mean Corpuscular Hemoglobin 29.6 pg (28.0-32.0); Mean Corpuscular Hgb Conc. 33.3 g/dL (32.0-36.0); Mean Corpuscular Volume 88.9 fL (80.0-100.0); Monocytes % (auto) 6.8 % (0.0-12.0); Neutrophils # (auto) 11.2 10 ^3/uL (1.6-8.6); Neutrophils % (auto) 78.7 % (37.0-80.0); Platelet Count (auto) 360 10^3/uL (140-450); Red Blood Cells 4.08 10^6/uL (4.0-5.20); Red Cell Distribution Width 15.1 % (11.8-14.3); White Blood Cell 14.2 10^3/uL (4.4-10.8)
[2024-04-02] MEDS ORDERED: BISACODYL 10 MG RECT SUPP PR PRN (23:30)
[2024-04-02] MEDS ORDERED: PREN-96 PO (23:42)
[2024-04-03] VITALS (10 sets, daily range): BP systolic 87–108; BP diastolic 52–64; PULSE 70–88; RESP 14–18; TEMP 97.7–98.4; O2SAT 95–99
[2024-04-03] MEDS: SIMETHICONE 80 MG CHEWABLE TABLET PO SCH (01:51)
[2024-04-03 09:22] LABS: Basophils # (auto) 0 10 ^3/uL (0-0.2); Basophils % (auto) 0.3 % (0.0-2.0); Eosinophils # (auto) 0 10 ^3/uL (0-0.8); Eosinophils % (auto) 0.3 % (0.0-7.0); Hematocrit 34.7 % (36.0-46.0); Hemoglobin 11.5 g/dL (12.2-16.2); Lymphocytes # (auto) 2.4 10 ^3/uL (0.4-5.4); Lymphocytes % (auto) 22.5 % (10.0-50.0); Mean Corpuscular Hemoglobin 29.9 pg (28.0-32.0); Mean Corpuscular Hgb Conc. 33.3 g/dL (32.0-36.0); Mean Corpuscular Volume 89.8 fL (80.0-100.0); Monocytes # (auto) 0.8 10 ^3/uL (0-1.3); Monocytes % (auto) 7.9 % (0.0-12.0); Neutrophils # (auto) 7.4 10 ^3/uL (1.6-8.6); Platelet Count (auto) 344 10^3/uL (140-450); Red Blood Cells 3.86 10^6/uL (4.0-5.20); Red Cell Distribution Width 14.9 % (11.8-14.3); White Blood Cell 10.7 10^3/uL (4.4-10.8)
[2024-04-03] MEDS: DOCUSATE CALCIUM 240 MG CAP PO SCH (10:32)
[2024-04-03] MEDS: DOCUSATE SOD 100 MG CAP PO SCH (10:32)
[2024-04-03] MEDS: HYDROcodone-ACET 5/325MG TAB PO PRN (11:08)
[2024-04-03] MEDS: IBUPROFEN 800 MG TAB PO PRN (15:03)
[2024-04-04 03:00] VITALS: BP 97/62; PULSE 80; RESP 16; TEMP 98.1; O2SAT 96
[2024-04-04] MEDS: HYDROcodone-ACET 5/325MG TAB PO PRN (04:24)
[2024-04-04 07:20] VITALS: BP 108/57; PULSE 76; RESP 16; TEMP 98; O2SAT 97
[2024-04-04 11:00] VITALS: BP 118/74; PULSE 90; RESP 15; TEMP 97.9; O2SAT 97
== END 2024-04-04 15:41 | disposition home or self-care (01) | DRG 788 ==
LOC: LDRP 04:00 → UNDOADMIN 04:16 → LDRP 07:48 → UNDOADMIN 10:12 → LDRP 10:12
PROVIDERS: ADMIT Obstetrics & Gynecology; ATTEND Obstetrics & Gynecology
PROC: 10D00Z1 Extraction of Products of Conception, Low, Open Approach (ICD-10-PCS; principal; 2024-04-02 07:10)
DX: O69.81X0 Labor and delivery complicated by cord around neck, without compression, not applicable or unspecified (principal); Z37.0 Single live birth; O34.211 Maternal care for low transverse scar from previous cesarean delivery; Z3A.38 38 weeks gestation of pregnancy; O99.214 Obesity complicating childbirth; E66.01 Morbid (severe) obesity due to excess calories; O99.344 Other mental disorders complicating childbirth; F32.A Depression, unspecified
CPT/HCPCS: 36415; 59025; 80053; 80307; 81001; 85025; 85610; 85730; 86592; 86780; 86803; 86850; 86900; 86901; 94760; 94762; 96360; 96361; 96365; 96366; 96374; G0378; J0131; J1100; J1885; J2405; J2590